=== PATIENT | male | born 1975 ===

== ENCOUNTER 2017-02-24 12:28 | Emergency (ER) | payer BC, OTHER ==
--- NOTE | 2017-02-24 12:59 | C.PDOC ---
History Of Present Illness 41 year old male presents to ED for evaluation of penile erection for the past 10 hours that is painful. Patient states that this is the first time it has ever happened. Denies urinary symptoms or fever. Time Seen by Provider: 02/24/17 12:56 Chief Complaint (Nursing): Male Genitourinary History Per: Patient History/Exam Limitations: no limitations Onset/Duration Of Symptoms: Hrs (10) Current Symptoms Are (Timing): Still Present Pain Scale Rating Of: 4 Quality Of Discomfort: Sharp Alleviating Factors: None Recent travel outside of the [place]: No Additional History Per: Patient Past Medical History Reviewed: Historical Data, Nursing Documentation, Vital Signs Vital Signs: Last Vital Signs Temp 97.6 F 02/24/17 12:43 Pulse 64 02/24/17 14:50 Resp 18 02/24/17 14:50 BP 143/84 02/24/17 14:50 Pulse Ox 96 02/24/17 15:14 - Medical History PMH: No Chronic Diseases Surgical History: No Surg Hx Family History: States: Unknown Family Hx - Social History Hx Alcohol Use: Yes Hx Substance Use: No - Immunization History Hx Tetanus Toxoid Vaccination: No Hx Influenza Vaccination: No Hx Pneumococcal Vaccination: No Review Of Systems Except As Marked, All Systems Reviewed And Found Negative. Constitutional: Negative for: Fever, Chills Genitourinary: Positive for: Other (penile erection). Negative for: Dysuria, Hematuria, Rash Physical Exam - Physical Exam Appears: Non-toxic, No Acute Distress Skin: Normal Color, Warm, Dry Head: Atraumatic, Normacephalic Eye(s): bilateral: Normal Inspection Oral Mucosa: Moist Neck: Supple Chest: Symmetrical Cardiovascular: Rhythm Regular, No Murmur Respiratory: Normal Breath Sounds, No Rales, No Rhonchi, No Wheezing Gastrointestinal/Abdominal: Soft, No Tenderness Male Genital: No Circumcised, Other (erect penis) Extremity: Normal ROM, No Pedal Edema Neurological/Psych: Oriented x3, Normal Speech Gait: Steady ED Course And Treatment - Laboratory Results Result Diagrams: 02/24/17 13:25 02/24/17 13:25 Lab Interpretation: Normal O2 Sat by Pulse Oximetry: 96 (RA) Pulse Ox Interpretation: Normal Progress Note: Blood work, UA ordered and reviewed. Patient was treated with Afrin intra nasal. On re-evaluation lungs clear in no distress Reassessment Condition: Improved - Physician Consult Information Physician Contacted: Tim Melo Outcome Of Conversation: will evaluate in ED Medical Decision Making Medical Decision Making: Case discussed with Dr Melo who agrees to evaluate patient and requests phenyepherine 500mcg/ml in 10 ml nss from pharmacy Penis injected and drained by Dr Melo at bedside Disposition Discussed With Dr.: Tim Melo Doctor Will See Patient In The: Hospital Counseled Patient/Family Regarding: Studies Performed, Diagnosis, Need For Followup - Disposition Referrals: Tim Melo MD [Staff Provider] - Disposition: HOME/ ROUTINE Disposition Time: 15:15 Condition: IMPROVED Additional Instructions: Follow up with Dr Melo in 1-2 weeks Instructions: Priapism (ED) Forms: [employer] ([place]) - POA Present On Arrival: None - Clinical Impression Clinical Impression: Priapism - PA / [employer] / Resident Statement MD/DO has reviewed & agrees with the documentation as recorded. - Scribe Statement The provider has reviewed the documentation as recorded by the Scribe Jeremías Damico All medical record entries made by the Vannaibe were at my direction and personally dictated by me. I have reviewed the chart and agree that the record accurately reflects my personal performance of the history, physical exam, medical decision making, and the department course for this patient. I have also personally directed, reviewed, and agree with the discharge instructions and disposition.
[2017-02-24] MEDS ORDERED: Oxymetazoline 0.05% Nasal Spray (30 ml) NS STA (13:16)
[2017-02-24 13:38] LABS: BASO # 0.1 K/uL (0.0-0.2); BASO % 0.7 % (0.0-2.0); EOS # 0.1 K/uL (0.0-0.7); EOS % 1.4 % (0.0-4.0); LYMPH # 1.2 K/uL (1.0-4.3); LYMPH % 14.2 % (20.0-40.0); MEAN CELL VOLUME 89.1 fL (80.0-94.0); MEAN CORPUSCULAR HEMOGLOBIN 29.8 pg (27.0-31.0); MEAN CORPUSCULAR HGB CONC 33.4 g/dL (33.0-37.0); MEAN PLATELET VOLUME 9.8 fL (7.2-11.7); MONO # 0.7 K/uL (0.0-0.8); RED CELL DISTRIBUTION WIDTH 13.6 % (11.5-14.5); WHITE BLOOD COUNT 8.8 K/uL (4.8-10.8)
[2017-02-24 13:49] LABS: RBC URINE 1 /hpf (0-3); URINE BACTERIA RARE (<OCC); URINE BILIRUBIN NEGATIVE (NEGATIVE); URINE BLOOD NEGATIVE (NEGATIVE); URINE COLOR Yellow (YELLOW); URINE GLUCOSE (UA) NORMAL (Normal); URINE KETONE NEGATIVE (NEGATIVE); URINE LEUKOCYTE ESTERASE NEG Leu/uL (Negative); URINE PROTEIN NEGATIVE (NEGATIVE); URINE UROBILINOGEN NORMAL mg/dL (0.2-1.0); WBC URINE 4 /hpf (0-5)
[2017-02-24 13:52] LABS: CHLORIDE 102 mmol/L (98-107); SODIUM 136 mmol/L (132-148)
[2017-02-24 13:53] LABS: POTASSIUM 4.1 mmol/L (3.6-5.2)
[2017-02-24 13:55] LABS: ALB/GLOB RATIO 1.5 (1.0-2.1); ALKALINE PHOSPHATASE 62 U/L (38-126); ALT/SGPT 33 U/L (21-72); AST/SGOT 29 U/L (17-59); BILIRUBIN,TOTAL 0.8 mg/dL (0.2-1.3); BLOOD UREA NITROGEN 14 mg/dL (9-20); CALCIUM 8.9 mg/dl (8.6-10.4); CARBON DIOXIDE 26 mmol/L (22-30); GFR AFRICAN-AMERICAN > 60; GLUCOSE,RANDOM 89 mg/dL (75-110); TOTAL PROTEIN 6.5 g/dL (6.3-8.3)
[2017-02-24] MEDS ORDERED: SODIUM CHLORIDE 0.9% IC SCH (14:00)
[2017-02-24] MEDS ORDERED: PHENYLEPHRINE IC SCH (14:00)
[2017-02-24] MEDS ORDERED: Lidocaine 2% Inj (20ml) ONE (14:02)
[2017-02-24] MEDS ORDERED: ceFAZolin IV 1 gm in Dextrose 1 GM/50 ML BAG IVPB STA (14:15)
[2017-02-24] MEDS ORDERED: Bacitracin 500 Units/gm Oint Foilpak UD ONE (14:40)
[2017-02-24] MEDS ORDERED: ceFAZolin 1 gm FROZEN Premix 1 GM/50 ML ML IVPB ONE (14:49)
[2017-02-24 15:57] VITALS: BP 135/70; PULSE 61; RESP 20; TEMP 98; O2SAT 97
--- NOTE | 2017-02-25 05:50 | CON ---
COMPREHENSIVE EMERGENCY ROOM UROLOGY CONSULTATION DATE: 02/24/2017 TIME OF CONSULTATION: Roughly 3:08 p.m. BRIEF HISTORY: The patient is a 41-year-old sexually active male from [place] who presents with a 12-hour history of priapism, which began at 2:00 a.m. this morning. The patient denies any history of any PDE5 inhibitor use such as Viagra, Cialis, Levitra, Staxyn or Stendra. No history of any self penile injections with Caverject or Edex. The patient just developed an erection while brushing his teeth early this morning and which stayed erect until his visit in the emergency room at [facility]. PAST MEDICAL HISTORY: The patient denies any prior medical history. PAST SURGICAL HISTORY: He also denies any prior surgical history. SOCIAL HISTORY: He is a light tobacco smoker and a social drinker. ALLERGIES: NO KNOWN ALLERGIES TO MEDICATIONS. FAMILY HISTORY: He has no family history of cancer or history of cancer including prostate cancer. PHYSICAL EXAMINATION: GENERAL: Well-developed, well-nourished, slightly obese male. Alert and oriented. HEENT: Grossly within normal limits. ABDOMEN: Soft, nondistended and nontender. No CVA tenderness. No suprapubic tenderness. GENITALIA: The patient also states he has had no trauma to the genital area and voids with his usual normal stream during this entire episode. The patient is not circumcised with a normal glans and meatus. He has full penile erection at this time. His testicles are down bilaterally and are nontender. PROCEDURE: It was decided to decompress his priapism. The patient signed consent for this process. Using 1% lidocaine for anesthesia, approximately 3 mL of 1% lidocaine was injected into the midshaft of the penis at the 3 o'clock position down to the corpora cavernosa. Next, approximately 500 mcg phenylephrine was injected in to the corpora and allowed to be maintained for about 5 minutes with minimal effect. A second injection was placed after 5 minutes in a similar area and there started to be some detumescence and then a third injection after 15 minutes was injected in area with some more detumescence but not full detumescence. Next, a 60 mL syringe with a 19-gauge needle was placed into the corpora in the same area and approximately 30 mL of clouded dark blood was removed with almost full detumescence of the penis and the patient became very comfortable at this time and the penis was able to be completely bent and was soft at this time and the procedure was stopped. The patient received 1 g of Ancef IV during the procedure, Betadine has been applied to the penile shaft prior to start of the penile injections and the end of the procedure, Bacitracin ointment was applied to the injection site and covered with a sterile gauze dressing. The patient tolerated the procedure well with 30 mL of blood loss from the corpora cavernosa. The patient will be seen in office followup in about 2 weeks. The patient was advised not to take any type of PDE5 inhibitors, which he has never taken before in the past and we will also advice to avoid sex for 2 weeks. The patient also denied any type of history of any type of antidepressant medications. The patient was also given 2 mg of morphine IV just prior to the start of the procedure. Tim Melo MD
== END 2017-02-24 16:03 | disposition home or self-care (01) ==
LOC: C.ER 12:28
DX: N48.30 Priapism, unspecified (principal)
CPT/HCPCS: 80053; 81001; 85025; 96365; 96375; 96376; 99284; J0690; J2270